=== PATIENT | female | born 1965 ===

== ENCOUNTER 2018-10-12 06:40 | Day surgery (SDC) | payer OTHER ==
[~2018-10-12 06:40] MED LIST: ENALAPRIL MALEA10 MG PO; METFORMIN HCL850 MG PO
== END 2018-10-12 17:20 | disposition home or self-care (01) ==
LOC: CIR.AMB 06:40
DX: M65.841 Other synovitis and tenosynovitis, right hand (principal)

== ENCOUNTER 2018-11-16 06:10 | Day surgery (SDC) | payer OTHER | END 2018-11-16 10:55 | disposition home or self-care (01) | LOC: CIR.AMB 06:10 | DX: M65.842 Other synovitis and tenosynovitis, left hand (principal) ==